=== PATIENT | female | born 1975 | race Hispanic/Latino ===

== ENCOUNTER → 2021-02-06 | Outpatient (CLI) | payer OTHER | END | disposition home or self-care (01) | LOC: OIH 09:51 | PROVIDERS: ATTEND Family Medicine | DX: Z02.71 Encounter for disability determination (principal); E11.9 Type 2 diabetes mellitus without complications; G47.33 Obstructive sleep apnea (adult) (pediatric); M79.7 Fibromyalgia; M35.00 Sjogren syndrome, unspecified; G47.39 Other sleep apnea | CPT/HCPCS: 71046 ==

== ENCOUNTER → 2024-07-16 | Outpatient (CLI) | payer OTHER | END | disposition home or self-care (01) | LOC: RAH 10:42 | PROVIDERS: ATTEND Nurse Practitioner Adult Health | DX: Z12.31 Encounter for screening mammogram for malignant neoplasm of breast (principal) | CPT/HCPCS: 77067 ==